=== PATIENT | male | born 1965 | race Caucasian/White ===

== ENCOUNTER 2024-10-31 09:07 | Emergency (ER) | payer OTHER, SELFPAY ==
[2024-10-31] VITALS (7 sets, daily range): BP systolic 84–139; BP diastolic 63–89; PULSE 81–120; RESP 17–18; TEMP 36.3; O2SAT 100
[2024-10-31 12:13] LABS: Basophils Percent Auto 0.3 % (0.2-1.2); Eosinophils Absolute Auto 0.9 K/mm3 (0-0.3); Eosinophils Percent Auto 9.5 % (0-4.4); Hematocrit 44.7 % (42.0-52.0); Hemoglobin 14.6 g/dL (14.0-18.0); Immature Granulocyte Absolute 0.04 K/mm3 (0.00-0.031); Immature Granulocyte Percent A 0.4 % (0-0.5); Lymphocytes Absolute Auto 1.57 K/mm3 (0.9-3.2); Lymphocytes Percent Auto 17.3 % (18.3-44.2); Mean Corpuscular HGB Conc 32.7 g/dl (32-36); Mean Corpuscular Hemoglobin 25.6 pg (26-34); Mean Corpuscular Volume 78.4 fl (80-100); Mean Platelet Volume 10.4 fl (7.4-10.4); Monocytes Absolute Auto 0.4 K/mm3 (0.1-0.6); Monocytes Percent Auto 4.2 % (2.6-8.5); Neutrophils Absolute Auto 6.2 K/mm3 (1.3-6.7); Neutrophils Percent Auto 68.3 % (45.5-73.1); Platelet Count Result 287 k/mm3 (150-375); Red Cell Distribution Width 20.4 % (11.5-14.5); White Blood Count 9.1 K/mm3 (4.5-10.0)
[2024-10-31] MEDS: SODIUM CHLORIDE 0.9% IV 1,000 ML 999 ML IV CONT ×2 (12:18→13:30)
[2024-10-31 12:24] LABS: Alanine Aminotransferase 92 U/L (6-50); Albumin Level 4.4 g/dL (3.5-5.1); Alkaline Phosphatase 123 U/L (38-126); Anion Gap 15 mmol/L (4-12); Aspartate Amino Transferase 63 U/L (17-59); Bilirubin,Total 0.6 mg/dL (0.2-1.3); Blood Urea Nitrogen 48 mg/dL (9-20); Carbon Dioxide 19 mmol/L (22-30); Chloride 101 mmol/L (98-107); Estimated CRCL calculation 58 ml/min; Estimated Glomerular Filt Rate 50; Glucose 112 mg/dL (65-110); Magnesium 2.2 mg/dL (1.6-2.3); Potassium 3.6 mmol/L (3.4-5.0); Sodium 135 mmol/L (137-145)
--- NOTE | 2024-10-31 13:24 | ED.GENADULT ---
HPI - General Adult General Chief complaint: Unspecified Stated complaint: dehydration Time Seen by Provider: 10/31/24 11:28 History of Present Illness HPI narrative: Patient is a 59-year-old male who presents ER with concerns for dehydration from his palliative care visit. 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 He has an ileostomy and had increased output over the weekend. He is now getting dizzy when he goes from sitting standing. No syncope. No head injury. No other concerns. Output has started to decrease today. No fevers or chills. Related Data Allergies Allergy/AdvReac Type Severity Reaction Status Date / Time No Known Allergies Allergy Verified 10/31/24 12:10 Review of Systems Review of Systems: All systems reviewed & are unremarkable except as noted in HPI and below Constitutional: Constitutional: Reports no additional constitutional complaints ENT: Reports system reviewed and no additional complaints, except as documented Cardiovascular: Cardiovascular: Reports no additional cardiovascular complaints Gastrointestinal: Gastrointestinal: Reports no additional gastrointestinal complaints Neurologic: Reports system reviewed and no additional complaints, except as documented PMF Past Medical History Medical History (Updated 10/31/24 @ 13:27 by Jose F Roy MD) Thoracic outlet syndrome Plantar fasciitis Mild acid reflux Inflammatory bowel disease Ileostomy in place Essential (primary) hypertension Family History Family History (Updated 03/28/16 @ 23:19 by DOCTOR UNKNOWN) Father Family history of diabetes mellitus in first degree relative Family history of coronary artery disease Social History Social History Smoking status: Never smoker Alcohol intake: never Exam Narrative: GENERAL: Well-appearing, well-nourished, and in no acute distress. HEAD: Normocephalic, atraumatic. ENT: Mucous membranes moist. NECK: Supple. CHEST: Clear to auscultation. No respiratory distress. HEART: Regular rate and rhythm. Normal peripheral pulses. ABDOMEN: Soft, nontender, nondistended. Ileostomy left lower quadrant. EXTREMITIES: Normal range of motion. No edema. SKIN: Warm, dry, no rash. NEURO: Alert and oriented x3. PSYCH: Normal mood and affect. Course Course Emergency Course: Patient is orthostatic. 3 L of IV fluid. Orthostatics improved. Slightly elevated creatinine felt to be related to dehydration. Electrolytes without need for replacement. Feels comfortable discharge home. Vital Signs Vital signs: Vital Signs Temperature 97.4 F L 10/31/24 09:12 Pulse Rate 113 H 10/31/24 09:12 Respiratory Rate 18 10/31/24 09:12 Blood Pressure 100/63 10/31/24 09:12 Pulse Oximetry 100 10/31/24 09:12 Oxygen Delivery Room Air 10/31/24 09:12 Temperature 97.4 F L 10/31/24 09:12 Pulse Rate 98 10/31/24 14:32 Respiratory Rate 17 10/31/24 12:59 Blood Pressure 112/68 10/31/24 14:32 Pulse Oximetry 100 10/31/24 12:59 Oxygen Delivery Room Air 10/31/24 09:12 Medical Decision Making Vital Signs Vital Signs: Vital Signs Temperature 97.4 F L 10/31/24 09:12 Pulse Rate 113 H 10/31/24 09:12 Respiratory Rate 18 10/31/24 09:12 Blood Pressure 100/63 10/31/24 09:12 Pulse Oximetry 100 10/31/24 09:12 Oxygen Delivery Room Air 10/31/24 09:12 Temperature 97.4 F L 10/31/24 09:12 Pulse Rate 98 10/31/24 14:32 Respiratory Rate 17 10/31/24 12:59 Blood Pressure 112/68 10/31/24 14:32 Pulse Oximetry 100 10/31/24 12:59 Oxygen Delivery Room Air 10/31/24 09:12 Lab Data 10/31/24 12:06 10/31/24 12:06 Labs: Lab Results 10/31/24 Range/Units 12:06 WBC 9.1 (4.5-10.0) K/mm3 RBC 5.70 (4.6-6.20) M/mm3 Hgb 14.6 (14.0-18.0) g/dL Hct 44.7 (42.0-52.0) % MCV 78.4 L (80-100) fl MCH 25.6 L (26-34) pg MCHC 32.7 (32-36) g/dl RDW 20.4 H (11.5-14.5) % Plt Count 287 (150-375) k/mm3 MPV 10.4 (7.4-10.4) fl Immature Gran % (Auto) 0.4 (0-0.5) % Neut % (Auto) 68.3 (45.5-73.1) % Lymph % (Auto) 17.3 L (18.3-44.2) % [place] % (Auto) 4.2 (2.6-8.5) % Eos % (Auto) 9.5 H (0-4.4) % Baso % (Auto) 0.3 (0.2-1.2) % Lymph # (Auto) 1.57 (0.9-3.2) K/mm3 [place] # (Auto) 0.4 (0.1-0.6) K/mm3 Eos # (Auto) 0.9 H (0-0.3) K/mm3 Baso # (Auto) 0.0 (0.0-0.1) K/mm3 Abs Immat Gran (auto) 0.04 H (0.00-0.031) K/mm3 Absolute Neuts (auto) 6.2 (1.3-6.7) K/mm3 Absolute Nucleated RBC 0.000 (0.0-0.012) K/mm3 Nucleated RBC % 0.0 (0.0-0.2) % Sodium 135 L (137-145) mmol/L Potassium 3.6 (3.4-5.0) mmol/L Chloride 101 (98-107) mmol/L Carbon Dioxide 19 L (22-30) mmol/L Anion Gap 15 H (4-12) mmol/L BUN 48 H (9-20) mg/dL Creatinine 1.44 H (0.7-1.3) mg/dL Estim Creat Clear Calc 58 ml/min Estimated GFR 50 L (59 - ) Glucose 112 H (65-110) mg/dL Calcium 10.0 (8.4-10.2) mg/dL Magnesium 2.2 (1.6-2.3) mg/dL Total Bilirubin 0.6 (0.2-1.3) mg/dL AST 63 H (17-59) U/L ALT 92 H (6-50) U/L Alkaline Phosphatase 123 (38-126) U/L Total Protein 8.0 (6.3-8.2) g/dL Albumin 4.4 (3.5-5.1) g/dL Discharge Plan Discharge Clinical Impression: Dehydration Patient Disposition: Home, Self-Care Condition: Stable Instructions: Dehydration (ED) Additional Instructions: Please drink plenty of fluids at home. Return to the emergency department if you develop high fevers, have persistent severe abdominal pain, or have bloody stools or vomit, as these could be signs of a more serious medical emergency. Return to the emergency department if you are unable to keep down liquids because of severe nausea/vomiting. Patient Language: Persian Follow-up/Referrals: VI,BOYD PEDRO [Primary Care Provider] - 1 Week
[2024-10-31] MEDS: LACTATED RINGERS 1,000 ML 999 ML IV CONT (15:10)
== END 2024-10-31 16:16 | disposition home or self-care (01) ==
PROVIDERS: Emergency Provider Emergency Medicine; PCP Nurse Practitioner Family
DX: E86.0 Dehydration (principal); Z93.2 Ileostomy status; I10 Essential (primary) hypertension; Z85.9 Personal history of malignant neoplasm, unspecified
CPT/HCPCS: 36415; 80053; 83735; 85025; 96360; 96361; 99283; J7030; J7120